=== PATIENT | male | born 1950 | race Caucasian/White ===

== ENCOUNTER 2022-02-16 01:43 | Emergency (ER) | payer MEDICARE ==
[2022-02-16] MEDS ORDERED: FAMOTIDINE 20 MG (PEPCID) TABLET PO ONE (02:30)
--- NOTE | 2022-02-16 02:31 | ED Integumentary General ---
General Chief Complaint: Skin/Wound Problems Stated Complaint: RASH OR BUG BITES ALL OVER BODY Nursing Triage Note: PT ARRIVAL TO ER WITH COMPLAINT OF RASH TO BUTTOCKS AND LEFT INNER THIGH. PT STATES THAT THIS STARTED TWO DAYS AND THE RASH COMES AND GOES AND HAS BEEN IN OTHER LOCATIONS. PT STATES THAT HIS SPOUSE IS HAVING NO SYMPTOMS SUCH THIS. PT STATES THAT THEY HAVE WASHED ALL THE BEDDING AND STUFF AND STILL HAVING SYMPTOMS. PT HAS TRIED BENADRYL WITHOUT RELIEF. 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 Decision time for Depature: 02:29 Referrals: NO,LOCAL PHYSICIAN (PCP/Family) Primary Care Physician Patient Instructions: Hives (DC) Add. Discharge Instructions: AVOID ANY OVER THE COUNTER SUPPLEMENTS, INCLUDING CBD/THC AVOID ANYTHING WITH ARTIFICIAL FLAVORINGS OR COLORINGS TAKE BENADRYL 50 MG EVERY 4 HOURS NEEDED FOR RASH AND ITCHING TAKE PEPCID 40 MG 1-2 TIMES A DAY NEEDED FOR RASH AND ITCHING OVER THE COUNTER HYDROCORTISONE CREAM THREE TIMES A DAY NEEDED FOR RASH AND ITCHING All discharge instructions reviewed with patient and/or family. Voiced und erstanding. GANESH STROUD DO Feb 16, 2022 02:31
[2022-02-16 02:37] VITALS: BP 171/94
== END 2022-02-16 02:37 | disposition home or self-care (01) ==
LOC: ER 01:47
DX: L50.9 Urticaria, unspecified (principal)
CPT/HCPCS: 99283